=== PATIENT | female | born 2000 | race Two or more races ===

== ENCOUNTER 2020-05-18 13:22 | Emergency (ER) | payer OTHER ==
--- NOTE | 2020-05-18 13:53 | ER Document Report ---
ED Medical Screen (RME) - General Chief Complaint: Vaginal Bleeding Stated Complaint: VAGINAL BLEEDING Time Seen by Provider: 05/18/20 13:47 Mode of Arrival: Ambulatory Information source: Patient Notes: HPI;20-year-old female presents emergency room with persistent heavy vaginal bleeding. States she has a history of menstrual cycles secondary to PCO S. However she states this 1 is been lasting for 27 days is passing clots. Complains of generalized fatigue. States that she is going through an extra- large tampon and pad every 45 minutes. PE: Alert and oriented x3. Mild distress noted. Lungs: Clear to auscultation without rales, rhonchi, wheezes. Heart: Regular rate and rhythm without murmurs, rubs, gallops. Unable to do full exam in triage. I have greeted and performed a rapid initial assessment of this patient. A comprehensive ED assessment and evaluation of the patient, analysis of test results and completion of the medical decision making process will be conducted by additional ED providers. I have specifically instructed the patient or family members with the patient to immediately return to any nursing staff should anything change in the patient's condition or with their chief complaint. TRAVEL OUTSIDE OF THE [place] IN LAST 30 DAYS: No - Related Data Allergies/Adverse Reactions: amoxicillin Allergy (Verified 05/18/20 13:40) Past Medical History - Social History Frequency of alcohol use: Social Physical Exam - Vital signs Vitals: Temp Pulse Resp BP Pulse Ox 99.3 F 80 16 138/79 H 99 05/18/20 13:29 05/18/20 13:29 05/18/20 13:29 05/18/20 13:29 05/18/20 13:29 Course - Vital Signs Vital signs: Temp Pulse Resp BP Pulse Ox 99.3 F 80 16 138/79 H 99 05/18/20 13:29 05/18/20 13:29 05/18/20 13:29 05/18/20 13:29 05/18/20 13:29
[2020-05-18 14:08] LABS: ABSOLUTE BASOPHILS # (AUTO) 0.1 10^3/uL (0.0-0.2); ABSOLUTE EOSINOPHILS # (AUTO) 0.1 10^3/uL (0.0-0.6); ABSOLUTE LYMPHOCYTES (AUTO) 2.6 10^3/uL (0.5-4.7); ABSOLUTE MONOCYTES (AUTO) 0.5 10^3/uL (0.1-1.4); BASOPHILS % (AUTO) 0.7 % (0-2); EOSINOPHILS % (AUTO) 1.7 % (0-6); HEMATOCRIT 30.1 % (36.0-47.0); HEMOGLOBIN 9.6 g/dL (12.0-15.5); LYMPHOCYTES % (AUTO) 35.7 % (13-45); MEAN CORPUSCULAR HEMOGLOBIN 21.3 pg (27.0-33.4); MEAN CORPUSCULAR HGB CONC 31.8 g/dL (32.0-36.0); MEAN CORPUSCULAR VOLUME 67 fl (80-97); MONOCYTES % (AUTO) 6.8 % (3-13); PLATELET COUNT 401 10^3/uL (150-450); RED BLOOD COUNT 4.48 10^6/uL (3.72-5.28); RED CELL DISTRIBUTION WIDTH 19.1 % (11.5-14.0); SEGMENTED NEUTROPHILS % (AUTO) 55.1 % (42-78); TOTAL CELLS COUNTED % (AUTO) 100 %; WHITE BLOOD COUNT 7.2 10^3/uL (4.0-10.5)
[2020-05-18 14:27] LABS: ALKALINE PHOSPHATASE 84 U/L (38-126); ANION GAP 5 (5-19); ASPARTATE AMINO TRANSFERASE 21 U/L (14-36); BILIRUBIN,TOTAL 0.2 mg/dL (0.2-1.3); BLOOD UREA NITROGEN 10 mg/dL (7-20); CALCIUM 9.1 mg/dL (8.4-10.2); CARBON DIOXIDE 26 mmol/L (22-30); CHLORIDE 107 mmol/L (98-107); GLUCOSE 94 mg/dL (75-110); POTASSIUM 4.4 mmol/L (3.6-5.0); TOTAL PROTEIN 7.6 g/dL (6.3-8.2)
--- NOTE | 2020-05-18 15:42 | RADIOLOGY REPORT (SQ) ---
EXAM DESCRIPTION: U/S NON OB PEL W/DOPPLER IMAGES COMPLETED DATE/TIME: 05/18/2020 3:30 pm REASON FOR STUDY: vaginal bleeding COMPARISON: None. TECHNIQUE: Dynamic and static grayscale images acquired of the pelvis via transabdominal approach an d recorded on PACS. Additional selected color Doppler and spectral images recorded. LIMITATIONS: None. FINDINGS: UTERUS: Contour normal. No mass. ENDOMETRIAL STRIPE: The fundal endometrial echo complex is splayed by a small amount of fluid. No fo erika thickening. CERVIX: No nabothian cysts. RIGHT OVARY AND DOPPLER: Normal size. No worrisome masses. Normal arterial vascular flow without evid ence for torsion. LEFT OVARY AND DOPPLER: Normal size. No worrisome masses. Normal arterial vascular flow without evide nce for torsion. FREE FLUID: None noted. OTHER: No other significant finding. MEASUREMENTS: UTERUS: 7.2 x 4.8 x 3.6 cm ENDOMETRIAL STRIPE: 0.4 cm RIGHT OVARY: 3.2 x 2.9 x 1.9 cm LEFT OVARY: 4.0 x 2.0 x 2.3 cm IMPRESSION: A small amount of fluid seen within the fundal endometrial echo complex may represent bl ood products. Otherwise normal sonographic appearance of the uterus and adnexa. TECHNICAL DOCUMENTATION: JOB ID: [id number] 2010 [employer]- All Rights Reserved Reading location - IP/workstation name: [email or web address]
[2020-05-18 15:43] LABS: APPEARANCE,URINE CLEAR; BILIRUBIN,URINE NEGATIVE (NEGATIVE); COLOR,URINE YELLOW; GLUCOSE, URINE NEGATIVE (NEGATIVE); KETONES,URINE NEGATIVE (NEGATIVE); LEUKOCYTE ESTERASE,URINE NEGATIVE (NEGATIVE); NITRITE,URINE NEGATIVE (NEGATIVE); PROTEIN,URINE NEGATIVE (NEGATIVE); UROBILINOGEN,URINE NEGATIVE mg/dL (<2.0)
[2020-05-18] MEDS ORDERED: FERROUS SULFATE 325 MG TABLET PO ONE (15:52)
--- NOTE | 2020-05-18 15:55 | ER Document Report ---
ED General - General Chief Complaint: Vaginal Bleeding Stated Complaint: VAGINAL BLEEDING Time Seen by Provider: 05/18/20 13:47 Primary Care Provider: [facility] [Primary Care Provider] - Follow up as needed Mode of Arrival: Ambulatory Notes: Patient is a 20-year-old female with a past medical history of PCOS with a history of heavy periods who presents to the emergency department with a chief complaint of heavy menstruation. She states that over the past 27 days she has been on her menstrual cycle. She states that this is not unusual for her given her history of PCOS and her prior menses. She states about 2 days ago she was passing some clots and bleeding quite heavily. She states it was associated with a headache at that time. She went to an outpatient provider who did an evaluation and advised she come to the emergency department for a hemoglobin check. Patient states yesterday and today it is if though her menses "stopped". She states now the bleeding is very well controlled and she is only going through a few pads per day. She states about 2 days ago she was using close to 30 pads per day. She states that is not unusual for her but she was concerned given the length and duration of this menstrual cycle. She states she is no longer passing clots. She no longer has a headache. She is otherwise asymptomatic. She adds that about 2 months ago she was started on a new oral contraceptive. She states last week her doctor changed it to an unknown named new contraceptive that she states would help control her bleeding better. She has been on that one 1 week. She is followed closely by her female health provider for this. TRAVEL OUTSIDE OF THE [place] IN LAST 30 DAYS: No - Related Data Allergies/Adverse Reactions: amoxicillin Allergy (Verified 05/18/20 13:40) Past Medical History - General Information source: Patient - Social History Smoking Status: Current Some Day Smoker Frequency of alcohol use: Social Family History: Reviewed & Not Pertinent Review of Systems - Review of Systems Notes: As per HPI otherwise negative Physical Exam - Vital signs Vitals: Temp Pulse Resp BP Pulse Ox 99.3 F 80 16 138/79 H 99 05/18/20 13:29 05/18/20 13:29 05/18/20 13:29 05/18/20 13:29 05/18/20 13:29 - General General appearance: Appears well, Alert In distress: None - HEENT Head: Normocephalic, Atraumatic Eyes: Normal Conjunctiva: Normal Extraocular movements intact: Yes Eyelashes: Normal Pupils: PERRL Ears: Normal Mouth/Lips: Normal Neck: Supple - Respiratory Respiratory status: No respiratory distress Chest status: Nontender Breath sounds: Normal Chest palpation: Normal - Cardiovascular Rhythm: Regular Heart sounds: Normal auscultation - Abdominal Inspection: Normal Distension: No distension Bowel sounds: Normal Tenderness: Nontender Organomegaly: No organomegaly - Neurological Neuro grossly intact: Yes Cognition: Normal Orientation: AAOx4 - Psychological Associated symptoms: Normal affect, Normal mood - Skin Skin Temperature: Warm Skin Moisture: Dry Skin Color: Normal Course - Re-evaluation Re-evalutation: 05/18/20 16:04 Patient is hemoglobin 9.6. Her bleeding has greatly improved. She is on oral contraceptives. She has a follow-up appointment with her blood cell provider in the near future. We will start her on iron supplementation for now. I advise she call her women's health provider in the morning and inform them of her condition and hemoglobin. Advised that she return here or any ER with any new, persistent or worsening symptoms. She verbalized understood and agreed. Ultrasound negative for any acute process. Patient stable and appropriate for discharge and outpatient follow-up. - Vital Signs Vital signs: Temp Pulse Resp BP Pulse Ox 99.3 F 80 16 138/79 H 99 05/18/20 13:29 05/18/20 13:29 05/18/20 13:29 05/18/20 13:29 05/18/20 13:29 - Laboratory Result Diagrams: 05/18/20 13:57 05/18/20 13:57 Laboratory results interpreted by me: 05/18/20 05/18/20 13:57 15:22 Hgb 9.6 L Hct 30.1 L MCV 67 L MCH 21.3 L MCHC 31.8 L RDW 19.1 H Urine Ascorbic Acid 40 H Discharge - Discharge Clinical Impression: Dysfunctional uterine bleeding Anemia Qualifiers: Anemia type: unspecified type Qualified Code(s): D64.9 - Anemia, unspecified Condition: Stable Disposition: HOME, SELF-CARE Instructions: Anemia ([facility]), Vaginal Bleeding ([facility]) Additional Instructions: Your hemoglobin was 9.6 today. You have been started on iron supplementation. Please follow-up with your women's health care provider tomorrow for further direction and outpatient observation/management. Please return here or any ER immediately with any new, persistent or worsening symptoms. Prescriptions: Ferrous Sulfate 325 mg PO TID #90 tablet. Referrals: [facility] [Primary Care Provider] - Follow up as needed
[2020-05-18 16:17] VITALS: BP 135/72
== END 2020-05-18 16:16 | disposition home or self-care (01) ==
LOC: ER 13:22
DX: N93.8 Other specified abnormal uterine and vaginal bleeding (principal); D64.9 Anemia, unspecified; R51 Headache; Z88.0 Allergy status to penicillin; F17.200 Nicotine dependence, unspecified, uncomplicated
CPT/HCPCS: 36415; 76856; 80053; 81001; 84703; 85025; 93976; 99284